=== PATIENT | female | born 1975 | race Caucasian/White ===

== ENCOUNTER 2016-11-01 09:27 | Emergency (ER) | payer SELFPAY ==
[~2016-11-01 09:27] MED LIST: CEPHALEXIN500 M1 PO; DOXYCYCLINE150 M1 PO; EFFEXOR XR75 MG PO; EFFEXOR37.5 MG PO; FLEXERIL10 MG PO; GOOD NEIGHBOR200 M3 PO; NORCO 325 MG-51 TAB PO; PREDNISONE20 M1 PO; PREDNISONE20 MG PO; TRAZADONE HYDR100 MG PO; ULTRAM50 M1 PO; VIBRAMYCIN100 MG PO
[2016-11-01] MEDS ORDERED: EXCEDRIN EXTRA1 EACH PO (09:48)
[2016-11-01] MEDS ORDERED: NAPROSYN500 M1 PO (11:10)
[2016-11-01 11:18] VITALS: BP 116/64
== END 2016-11-01 11:16 | disposition home or self-care (01) ==
LOC: ED 09:27
DX: S66.811A Strain of other specified muscles, fascia and tendons at wrist and hand level, right hand, initial encounter (principal); S69.91XA Unspecified injury of right wrist, hand and finger(s), initial encounter; X50.1XXA Overexertion from prolonged static or awkward postures, initial encounter; Y93.9 Activity, unspecified; Y92.63 Factory as the place of occurrence of the external cause; Y99.0 Civilian activity done for income or pay